=== PATIENT | female | born 1990 | race Two or more races ===

== ENCOUNTER 2021-01-17 10:48 | Emergency (ER) | payer MEDICAID ==
[~2021-01-17] VITALS: Ht 165.1 cm; Wt 91.0 kg
[2021-01-17 12:29] LABS: BASOPHILS % 0.3 % (0.0-2.0); EOSINOPHILS % 0.9 % (0.0-5.0); HEMATOCRIT. 32.9 % (36.0-48.0); HEMOGLOBIN. 11.5 g/dL (12.0-16.0); MEAN CORPUSCULAR HEMOGLOBIN 29.8 pg (28.0-32.0); MEAN CORPUSCULAR VOLUME 85.7 fL (81.0-99.0); MEAN PLATELET VOLUME 8.8 fl (7.4-10.4); MONOCYTES % 5.9 % (2.0-8.0); NEUTROPHILS % 75.9 % (40.0-76.0); PLATELET 180 x1000/uL (130-400); RED BLOOD CELL COUNT 3.84 mill/uL (4.2-5.4); RED CELL DISTRIBUTION WIDTH 13.7 % (11.6-14.6)
[2021-01-17 12:32] LABS: CHLORIDE 110 mEq/L (98-107)
[2021-01-17 12:55] LABS: B-HCG QUANTITATIVE 14972 mIU/mL (<3)
[2021-01-17 13:03] LABS: *AMPHETAMINES SCREEN URINE NEGATIVE (NEGATIVE); *BARBITURATES SCREEN URINE NEGATIVE (NEGATIVE)
[2021-01-17 13:04] LABS: *BENZODIAZEPINES SCREEN URINE NEGATIVE (NEGATIVE); *COCAINE SCREEN URINE NEGATIVE (NEGATIVE); METHADONE URINE SCREEN NEGATIVE (NEGATIVE); OPIATES URINE SCREEN NEGATIVE (NEGATIVE)
[2021-01-17 13:05] LABS: CANNABINOID URINE SCREEN NEGATIVE (NEGATIVE); PHENCYCLIDINE URINE SCREEN NEGATIVE (NEGATIVE)
[2021-01-17] MEDS ORDERED: ACET-2708 MT (13:49)
[2021-01-17 14:14] VITALS: BP 124/73
== END 2021-01-17 14:17 | disposition home or self-care (01) ==
LOC: ER 10:48
DX: O20.0 Threatened abortion (principal); O26.892 Other specified pregnancy related conditions, second trimester; R03.0 Elevated blood-pressure reading, without diagnosis of hypertension; Z3A.16 16 weeks gestation of pregnancy; Z98.890 Other specified postprocedural states
CPT/HCPCS: 36415; 76805; 80053; 80305; 81025; 84702; 85025; 86850; 86900; 99284

== ENCOUNTER 2021-02-09 17:21 | Emergency (ER) | payer MEDICAID ==
[~2021-02-09] VITALS: Ht 165.1 cm; Wt 104.0 kg
[~2021-02-09 17:21] MED LIST: ACET-2708 MT
[2021-02-09 18:38] VITALS: BP 117/88
[2021-02-09 19:40] LABS: BASOPHILS % 0.2 % (0.0-2.0); EOSINOPHILS % 1.3 % (0.0-5.0); HEMOGLOBIN. 11.6 g/dL (12.0-16.0); LYMPHOCYTES % 19.7 % (20.0-50.0); MEAN CORPUSCULAR HEMOGLOBIN 29.6 pg (28.0-32.0); MEAN PLATELET VOLUME 8.5 fl (7.4-10.4); MONOCYTES % 6.6 % (2.0-8.0); NEUTROPHILS % 72.2 % (40.0-76.0); PLATELET 220 x1000/uL (130-400); RED BLOOD CELL COUNT 3.91 mill/uL (4.2-5.4); RED CELL DISTRIBUTION WIDTH 13.9 % (11.6-14.6)
[2021-02-09 19:46] LABS: CHLORIDE 108 mEq/L (98-107)
[2021-02-09 19:50] LABS: INR 0.9; PROTHROMBIN TIME 9.8 sec (9.6-11.0)
[2021-02-09 19:59] LABS: CLARITY URINE CLOUDY (CLEAR); COLOR URINE RED (YELLOW); KETONES URINE NEGATIVE (NEGATIVE); LEUKOCYTE ESTERASE URINE 1+ (NEGATIVE); NITRITE URINE NEGATIVE (NEGATIVE); OCCULT BLOOD URINE 3+ (NEGATIVE); PROTEIN URINE 2+ (NEGATIVE); SPECIFIC GRAVITY URINE 1.035 (1.005-1.030)
[2021-02-09 20:03] LABS: *AMPHETAMINES SCREEN URINE NEGATIVE (NEGATIVE); *BARBITURATES SCREEN URINE NEGATIVE (NEGATIVE); *BENZODIAZEPINES SCREEN URINE NEGATIVE (NEGATIVE); *COCAINE SCREEN URINE NEGATIVE (NEGATIVE); METHADONE URINE SCREEN NEGATIVE (NEGATIVE); OPIATES URINE SCREEN NEGATIVE (NEGATIVE)
[2021-02-09 20:04] LABS: CANNABINOID URINE SCREEN NEGATIVE (NEGATIVE); PHENCYCLIDINE URINE SCREEN NEGATIVE (NEGATIVE)
[2021-02-09 20:11] LABS: B-HCG QUANTITATIVE 17299 mIU/mL (<3)
[2021-02-14] MEDS ORDERED: ACET-2708 MT (09:32)
[2021-02-14] MEDS ORDERED: IBUP-2030 PO (09:32)
== END 2021-02-09 22:51 | disposition home or self-care (01) ==
LOC: ER 17:21
DX: O20.0 Threatened abortion (principal); Z3A.20 20 weeks gestation of pregnancy
CPT/HCPCS: 36415; 76805; 80053; 80305; 81003; 84702; 85025; 99284

== ENCOUNTER 2021-02-13 21:57 | Inpatient (IN) | payer MEDICAID ==
[~2021-02-13] VITALS: Ht 165.1 cm; Wt 109.1 kg
[2021-02-13] MEDS ORDERED: MORPHINE SULFATE 2 MG/ML CPJ (NOT FOR IM USE) IV ONE (22:30)
[2021-02-13] MEDS: DEXT 5%/LR + PITOCIN 20UNITS/L 1,000 ML IV SCH (22:50)
[2021-02-13 22:53] LABS: BASOPHILS % 0.2 % (0.0-2.0); EOSINOPHILS % 0.5 % (0.0-5.0); HEMOGLOBIN. 9.3 g/dL (12.0-16.0); LYMPHOCYTES % 16.8 % (20.0-50.0); MEAN CORPUSCULAR HEMOGLOBIN 29.7 pg (28.0-32.0); MEAN CORPUSCULAR VOLUME 89.1 fL (81.0-99.0); MEAN PLATELET VOLUME 8.5 fl (7.4-10.4); NEUTROPHILS % 76.5 % (40.0-76.0); PLATELET 199 x1000/uL (130-400); RED BLOOD CELL COUNT 3.14 mill/uL (4.2-5.4); RED CELL DISTRIBUTION WIDTH 13.8 % (11.6-14.6)
[2021-02-13] MEDS ORDERED: D5W/LR + PITOCIN 20UNITS/1000ML PREMIX IV ONE (23:00)
[2021-02-13 23:04] LABS: INR 0.9; PROTHROMBIN TIME 9.9 sec (9.6-11.0)
[2021-02-13] MEDS ORDERED: BISACODYL 10MG SUPP PR PRN (23:15)
[2021-02-13] MEDS ORDERED: IBUPROFEN 400MG TABLET PO PRN (23:15)
[2021-02-13] MEDS ORDERED: RHO(D) IMMUNE GLOBULIN 300 MCG/SYR IM NR (23:15)
[2021-02-13] MEDS ORDERED: IBUPROFEN 800MG TABLET PO PRN (23:15)
[2021-02-13] MEDS ORDERED: BENZOCAINE/LANOLIN/ALOE VERA SPRAY TOP PRN (23:15)
[2021-02-13] MEDS ORDERED: HEMORRHOIDAL SUPP PR PRN (23:15)
[2021-02-14] MEDS: DEXT 5%/LR + PITOCIN 20UNITS/L 1,000 ML IV SCH (01:31)
[2021-02-14] MEDS: ACETAMINOPHEN WITH CODEINE 300/30MG TABLET PO PRN ×2 (01:33→12:57)
[2021-02-14 04:00] VITALS: BP 96/40
[2021-02-14 04:08] VITALS: BP 116/65
[2021-02-14 07:57] LABS: HEPATITIS B SURFACE ANTIGEN NEGATIVE
[2021-02-14 08:00] VITALS: BP 97/59
[2021-02-14] MEDS ORDERED: MAGNESIUM/ALUMINUM HYDROXIDE/SIMETHICONE 30ML UDC PO SCH (08:20)
[2021-02-14] MEDS ORDERED: PRENATAL VIT/FE FUMARATE/FA TABLET PO SCH (09:00)
[2021-02-14] MEDS: METHYLERGONOVINE MALEATE 0.2MG TABLET PO SCH ×2 (09:18→12:57)
[2021-02-14] MEDS: FERROUS SULFATE 325MG TABLET PO SCH ×2 (09:19→12:57)
[2021-02-14] MEDS: SIMETHICONE 80MG TABLET CHEW PO SCH ×2 (09:19→12:57)
[2021-02-14] MEDS ORDERED: IBUP-2030 PO (09:32)
[2021-02-14] MEDS ORDERED: ACET-2708 MT (09:32)
[2021-02-14 10:11] VITALS: BP 97/59
[2021-02-14 12:00] VITALS: BP 105/62
[2021-02-14 12:45] LABS: BASOPHILS % 0.2 % (0.0-2.0); EOSINOPHILS % 0.2 % (0.0-5.0); HEMATOCRIT. 25.7 % (36.0-48.0); HEMOGLOBIN. 8.6 g/dL (12.0-16.0); MEAN CORPUSCULAR HEMOGLOBIN 29.7 pg (28.0-32.0); MEAN CORPUSCULAR VOLUME 88.8 fL (81.0-99.0); MEAN PLATELET VOLUME 8.5 fl (7.4-10.4); MONOCYTES % 5.3 % (2.0-8.0); NEUTROPHILS % 81.3 % (40.0-76.0); PLATELET 167 x1000/uL (130-400); RED BLOOD CELL COUNT 2.89 mill/uL (4.2-5.4); RED CELL DISTRIBUTION WIDTH 13.8 % (11.6-14.6)
[2021-02-14 12:57] VITALS: BP 97/59
[2021-02-14 14:04] LABS: CLARITY URINE CLEAR (CLEAR); COLOR URINE ORANGE (YELLOW); KETONES URINE NEGATIVE (NEGATIVE); LEUKOCYTE ESTERASE URINE 1+ (NEGATIVE); NITRITE URINE NEGATIVE (NEGATIVE); OCCULT BLOOD URINE 3+ (NEGATIVE); PROTEIN URINE 1+ (NEGATIVE); SPECIFIC GRAVITY URINE 1.016 (1.005-1.030)
[2021-02-14 14:19] LABS: *AMPHETAMINES SCREEN URINE NEGATIVE (NEGATIVE); *BARBITURATES SCREEN URINE NEGATIVE (NEGATIVE); *BENZODIAZEPINES SCREEN URINE NEGATIVE (NEGATIVE); *COCAINE SCREEN URINE NEGATIVE (NEGATIVE)
[2021-02-14 14:20] LABS: CANNABINOID URINE SCREEN NEGATIVE (NEGATIVE); METHADONE URINE SCREEN NEGATIVE (NEGATIVE); PHENCYCLIDINE URINE SCREEN NEGATIVE (NEGATIVE)
[2021-02-14 14:28] LABS: OPIATES URINE SCREEN PRESUMTIVE POSITIVE (NEGATIVE)
[2021-02-14] MEDS ORDERED: DOCUSATE SODIUM 100MG CAPSULE PO SCH (21:00)
== END 2021-02-14 15:30 | disposition home or self-care (01) | DRG 560 ==
LOC: ER 21:57 → 8 EST LDRP 23:06 → OBSVTOIN 23:06 → 6EST 02-14 02:29
PROVIDERS: ADMIT Obstetrics & Gynecology; ATTEND Obstetrics & Gynecology
PROC: 10E0XZZ Delivery of Products of Conception, External Approach (ICD-10-PCS; principal; 2021-02-13)
DX: O03.9 Complete or unspecified spontaneous abortion without complication (principal); Z37.1 Single stillbirth; O45.92 Premature separation of placenta, unspecified, second trimester; J45.909 Unspecified asthma, uncomplicated; O34.211 Maternal care for low transverse scar from previous cesarean delivery; O99.512 Diseases of the respiratory system complicating pregnancy, second trimester; Z87.440 Personal history of urinary (tract) infections; Z3A.20 20 weeks gestation of pregnancy
CPT/HCPCS: 36415; 80305; 81003; 85025; 85384; 86592; 86703; 86762; 86850; 86900; 87340; 88307; 99281; 99285; J2270; J2590